=== PATIENT | female | born 1935 | race Caucasian/White ===

== ENCOUNTER 2019-11-04 14:42 | Inpatient (IN) | payer OTHER, MEDICARE ==
[~2019-11-04] VITALS: Ht 165.1 cm; Wt 79.4 kg
[2019-11-04 14:42] VITALS: Ht 165.1 cm; Wt 79.4 kg
[2019-11-04 15:59] VITALS: BP 65/39
[2019-11-04 16:29] LABS: ALKALINE PHOSPHATASE 133 U/L (46-116); ALT/SGPT 142 U/L (14-59); AST/SGOT 210 U/L (15-37); BILIRUBIN TOTAL 0.18 mg/dL (0.20-1.00); CALCIUM 7.6 mg/dL (8.5-10.1); CARBON DIOXIDE 16.3 mmol/L (21-32); CHLORIDE SERUM 97 mmol/L (98-107); CREATININE SERUM 1.4 mg/dL (0.6-1.0); SODIUM SERUM 130 mmol/L (136-145)
[2019-11-04 16:33] LABS: ALBUMIN 1.1 g/dL (3.4-5.0)
[2019-11-04 17:16] LABS: GLUCOSE SERUM 847 mg/dL (74-106)
[2019-11-04] MEDS ORDERED: SIMVASTATIN5 M2 PO (20:05)
[2019-11-04] MEDS ORDERED: NOR5 PO (20:05)
[2019-11-04] MEDS ORDERED: MIRTAZAPINE15 M3 PO (20:06)
[2019-11-04] MEDS ORDERED: CLORAZEPATE DI7.5 MG PO (20:06)
[2019-11-04 20:22] LABS: PLATELET COUNT 190 x10^3mcL (130-400); RED CELL DISTRIBUTION WIDTH 16.3 % (11.5-14.5)
[2019-11-04 20:27] LABS: MAGNESIUM 2.6 mg/dL (1.8-2.4); PHOSPHOROUS 6.9 mg/dL (2.5-4.9)
[2019-11-04 20:28] VITALS: BP 63/38
[2019-11-04 20:29] LABS: T3 TOTAL 0.57 ng/mL
[2019-11-04 20:30] LABS: CHOLESTEROL/HDL RATIO 4.1; MONOCYTE 1 % (0-7); SEGMENTED NEUTROPHILS 54 % (37-75)
[2019-11-04 20:31] LABS: ATYPICAL LYMPH 1 %; BAND NEUTROPHIL 4 % (0-10); BASOPHIL 0 % (0-2); METAMYELOCTE 1 % (0-2); MYELOCYTE 1 % (0-2); ovalocyte/elliptocyte 1+; rbc morphology (normal/abnorm) ABNORMAL (NORMAL)
[2019-11-04 20:32] LABS: PLATELET MORPHOLOGY PLATELETS NORMAL
[2019-11-04 21:08] LABS: FREE T4 0.85 ng/dL (0.76-1.46)
[2019-11-04 21:09] LABS: FREE THYROXINE INDEX 1.6 ug/dL (1.4-4.5); T4(THYROXINE) 3.8 ug/dL (4.7-13.3)
== END 2019-11-04 20:50 | disposition expired | DRG 208 ==
LOC: ED 14:42 → IC 17:39
PROVIDERS: Emergency Medicine; ADMIT Family Medicine
PROC: 0BH17EZ Insertion of Endotracheal Airway into Trachea, Via Natural or Artificial Opening (ICD-10-PCS; principal; 2019-11-04)
PROC: 5A1935Z Respiratory Ventilation, Less than 24 Consecutive Hours (ICD-10-PCS; 2019-11-04)
PROC: 05HM33Z Insertion of Infusion Device into Right Internal Jugular Vein, Percutaneous Approach (ICD-10-PCS; 2019-11-04)
PROC: 5A12012 Performance of Cardiac Output, Single, Manual (ICD-10-PCS; 2019-11-04)
DX: J96.01 Acute respiratory failure with hypoxia (principal); T17.920A Food in respiratory tract, part unspecified causing asphyxiation, initial encounter; I46.9 Cardiac arrest, cause unspecified; Z66 Do not resuscitate; X58.XXXA Exposure to other specified factors, initial encounter; Y92.001 Dining room of unspecified non-institutional (private) residence as the place of occurrence of the external cause
CPT/HCPCS: 36600; 83880; 84439; G0378; G0480; J1265; J2543; J3475; J3480; J3490; J7030; J7120; Q0092